=== PATIENT | male | born 1990 | race Caucasian/White ===

== ENCOUNTER 2017-03-29 15:11 | Emergency (ER) | payer SELFPAY ==
[2017-03-29 16:33] VITALS: BP 120/57
== END 2017-03-29 18:00 ==
LOC: ED 15:11
DX: R10.9 Unspecified abdominal pain (principal); Z53.21 Procedure and treatment not carried out due to patient leaving prior to being seen by health care provider

== ENCOUNTER 2017-05-04 14:37 | Emergency (ER) | payer MEDICARE ==
[2017-05-04] MEDS ORDERED: NACL 0.9% 1000 ML 1,000 ML IV ONE ×3 (17:25→21:35)
[2017-05-04 17:53] LABS: Basophils # (Auto) 0.1 K/mm3 (0.0-0.1); Basophils % (Auto) 0.5 % (0.0-1.8); Eosinophils # (Auto) 0.1 K/mm3 (0.0-0.4); Eosinophils % (Auto) 0.7 % (0.0-4.3); Hematocrit 39.8 % (35.5-45.6); Hemoglobin 13.4 gm/dl (11.8-15.2); Lymphocytes # (Auto) 2.9 K/mm3 (1.2-5.4); Lymphocytes % (Auto) 29.7 % (13.4-35.0); Mean Corpuscular HGB Conc 34 % (32-34); Mean Corpuscular Hemoglobin 26 pg (28-32); Mean Corpuscular Volume 78 fl (84-94); Monocytes # (Auto) 0.8 K/mm3 (0.0-0.8); Monocytes % (Auto) 7.7 % (0.0-7.3); Platelet Count 267 K/mm3 (140-440); Red Cell Distribution Width 13.8 % (13.2-15.2)
--- NOTE | 2017-05-04 18:03 | Emergency Department Report ---
ED Psych HPI - General Chief Complaint: Psych Stated Complaint: ANXIETY Time Seen by Provider: 05/04/17 17:21 Source: EMS Mode of arrival: Stretcher Limitations: No Limitations - History of Present Illness Initial Comments: 26-year-old male with a past medical history HIV and bipolar disorder presents to the hospital via EMS and found by Mary by police department. She does state the patient has not been taking medication and he took some bed drugs. Patient denies this. States he takes trazodone. Denies substance use. Patient states that in his home his double end sewer has backed up 3 days ago and he is seeing furry things and seeing waste droppings in his home. Patient is speaking fast, anxious, and fidgeting in the bed. He states that is his baseline. He states he is sleeping. He denies suicidal or homicidal ideation. States he is taking HIV medication and has an undetectable viral load. Patient did smoke marijuana earlier today. Patient was in the police car when EMS arrived it is unclear how the police got involved - Related Data Home Medications Medication Instructions Recorded Confirmed Last Taken No Known Home Medications [No 05/04/17 05/04/17 Unknown Reported Home Medications] Allergies Allergy/AdvReac Type Severity Reaction Status Date / Time No Known Allergies Allergy Unverified 03/29/17 16:33 ED Review of Systems ROS: Stated complaint: ANXIETY Other details as noted in HPI Comment: All other systems reviewed and negative Other: Constitutional: No fevers chills Eyes: No eye pain visual changes ENT: No ear pain or throat pain Neck: Denies pain Respiratory: Denies cough wheezing shortness of breath Cardiovascular: Denies chest pain, palpitations, syncope GI: Denies abdominal pain, nausea, vomiting, diarrhea : Denies dysuria Musculoskeletal: Denies back pain, joint swelling Skin: Denies rash, lesions, erythema Neurologic: Denies headache, numbness, weakness Psychiatric: Denies suicidal ideation, hallucinations ED Past Medical Hx - Past Medical History Hx HIV: Yes - Social History Smoking Status: Current Every Day Smoker Substance Use Type: Alcohol - Medications Home Medications: Home Medications Medication Instructions Recorded Confirmed Last Taken Type No Known Home Medications [No 05/04/17 05/04/17 Unknown History Reported Home Medications] ED Physical Exam - General Limitations: No Limitations - Other Other exam information: General: No limitations, patient is alert in no acute distress Head exam: Atraumatic, normocephalic Eyes exam: Normal appearance, pupils equal reactive to light ENT: Moist mucous membrane, normal oropharynx Neck exam: Normal inspection, full range of motion, no meningismus nontender Respiratory exam: Clear to auscultation bilateral, no wheezes, rales, crackles Cardiovascular: Normal rate and rhythm, normal heart sounds Abdomen: Soft, nondistended, and nontender, with normal bowel sounds, no rebound, or guarding Extremity: Full range of motion normal inspection no deformity Back: Normal Inspection, full range of motion, no tenderness Neurologic: Alert, oriented x3, cranial nerves intact, no motor or sensory deficit Psychiatric: Pressured speech, fidgeting, anxious Skin: Warm, dry, intact ED Course Vital Signs 05/04/17 05/04/17 05/04/17 15:55 18:10 21:04 Temperature 98.5 F 98.0 F Pulse Rate 133 H 96 H 69 Respiratory 20 20 Rate Blood Pressure 145/80 Blood Pressure 114/64 [Left] O2 Sat by Pulse 99 99 98 Oximetry - Reevaluation(s) Reevaluation #1: 05/04/17 18:29 Patient's initial heart rate 133 but repeat is in the 90s which is confirmed by EKG which shows sinus rhythm at 93. CK is elevated. Urine culture pending. IV fluids ordered 05/05/17 01:17 When confronted about UDS results patient admits to abusing methamphetamine and admits to being noncompliant with his medications. He still denies suicidal or homicidal ideation. ED Medical Decision Making - Lab Data Result diagrams: 05/04/17 17:33 05/04/17 17:33 Lab Results 05/04/17 05/04/17 05/04/17 Range/Units 17:33 17:33 17:33 WBC (4.5-11.0) K/mm3 RBC (3.65-5.03) M/mm3 Hgb (11.8-15.2) gm/dl Hct (35.5-45.6) % MCV (84-94) fl MCH (28-32) pg MCHC (32-34) % RDW (13.2-15.2) % Plt Count (140-440) K/mm3 Lymph % (Auto) (13.4-35.0) % [place] % (Auto) (0.0-7.3) % Eos % (Auto) (0.0-4.3) % Baso % (Auto) (0.0-1.8) % Lymph # (1.2-5.4) K/mm3 Hamb[place] # (0.0-0.8) K/mm3 Eos # (0.0-0.4) K/mm3 Baso # (0.0-0.1) K/mm3 Seg Neutrophils % (40.0-70.0) % Seg Neutrophils # (1.8-7.7) K/mm3 PT (12.2-14.9) Sec. INR (0.87-1.13) Sodium 140 (137-145) mmol/L Potassium 3.3 L (3.6-5.0) mmol/L Chloride 99.1 (98-107) mmol/L Carbon Dioxide 26 (22-30) mmol/L Anion Gap 18 mmol/L BUN 16 (9-20) mg/dL Creatinine 1.1 (0.8-1.5) mg/dL Estimated GFR > 60 ml/min BUN/Creatinine Ratio 15 % Glucose 87 (75-100) mg/dL Calcium 9.0 (8.4-10.2) mg/dL Magnesium (1.7-2.3) mg/dL Total Creatine Kinase (55-170) units/L TSH (0.270-4.200) mlU/mL Free T4 (0.76-1.46) ng/dL Urine Color (Yellow) Urine Turbidity (Clear) Urine pH (5.0-7.0) Ur Specific [place] (1.003-1.030) Urine Protein (Negative) mg/dL Urine Glucose (UA) (Negative) mg/dL Urine Ketones (Negative) mg/dL Urine Blood (Negative) Urine Nitrite (Negative) Urine Bilirubin (Negative) Urine Urobilinogen (<2.0) mg/dL Ur Leukocyte Esterase (Negative) Urine WBC (Auto) (0.0-6.0) /HPF Urine RBC (Auto) (0.0-6.0) /HPF U Epithel Cells (Auto) (0-13.0) /HPF Salicylates < 0.3 L (2.8-20.0) mg/dL Urine Opiates Screen Urine Methadone Screen Acetaminophen < 15.0 (10.0-30.0) ug/mL Ur Barbiturates Screen Ur Phencyclidine Scrn Ur Amphetamines Screen U Benzodiazepines Scrn Urine Cocaine Screen U Marijuana (THC) Screen Drugs of Abuse Note Plasma/Serum Alcohol (0-0.07) % 05/04/17 05/04/17 05/04/17 Range/Units 17:33 17:33 17:33 WBC 9.8 (4.5-11.0) K/mm3 RBC 5.10 H (3.65-5.03) M/mm3 Hgb 13.4 (11.8-15.2) gm/dl Hct 39.8 (35.5-45.6) % MCV 78 L (84-94) fl MCH 26 L (28-32) pg MCHC 34 (32-34) % RDW 13.8 (13.2-15.2) % Plt Count 267 (140-440) K/mm3 Lymph % (Auto) 29.7 (13.4-35.0) % [place] % (Auto) 7.7 H (0.0-7.3) % Eos % (Auto) 0.7 (0.0-4.3) % Baso % (Auto) 0.5 (0.0-1.8) % Lymph # 2.9 (1.2-5.4) K/mm3 Hamb[place] # 0.8 (0.0-0.8) K/mm3 Eos # 0.1 (0.0-0.4) K/mm3 Baso # 0.1 (0.0-0.1) K/mm3 Seg Neutrophils % 61.4 (40.0-70.0) % Seg Neutrophils # 6.0 (1.8-7.7) K/mm3 PT (12.2-14.9) Sec. INR (0.87-1.13) Sodium (137-145) mmol/L Potassium (3.6-5.0) mmol/L Chloride (98-107) mmol/L Carbon Dioxide (22-30) mmol/L Anion Gap mmol/L BUN (9-20) mg/dL Creatinine (0.8-1.5) mg/dL Estimated GFR ml/min BUN/Creatinine Ratio % Glucose (75-100) mg/dL Calcium (8.4-10.2) mg/dL Magnesium 1.70 (1.7-2.3) mg/dL Total Creatine Kinase 1275 H (55-170) units/L TSH (0.270-4.200) mlU/mL Free T4 (0.76-1.46) ng/dL Urine Color (Yellow) Urine Turbidity (Clear) Urine pH (5.0-7.0) Ur Specific [place] (1.003-1.030) Urine Protein (Negative) mg/dL Urine Glucose (UA) (Negative) mg/dL Urine Ketones (Negative) mg/dL Urine Blood (Negative) Urine Nitrite (Negative) Urine Bilirubin (Negative) Urine Urobilinogen (<2.0) mg/dL Ur Leukocyte Esterase (Negative) Urine WBC (Auto) (0.0-6.0) /HPF Urine RBC (Auto) (0.0-6.0) /HPF U Epithel Cells (Auto) (0-13.0) /HPF Salicylates (2.8-20.0) mg/dL Urine Opiates Screen Urine Methadone Screen Acetaminophen (10.0-30.0) ug/mL Ur Barbiturates Screen Ur Phencyclidine Scrn Ur Amphetamines Screen U Benzodiazepines Scrn Urine Cocaine Screen U Marijuana (THC) Screen Drugs of Abuse Note Plasma/Serum Alcohol < 0.01 (0-0.07) % 05/04/17 05/04/17 05/04/17 Range/Units 17:33 17:33 19:40 WBC (4.5-11.0) K/mm3 RBC (3.65-5.03) M/mm3 Hgb (11.8-15.2) gm/dl Hct (35.5-45.6) % MCV (84-94) fl MCH (28-32) pg MCHC (32-34) % RDW (13.2-15.2) % Plt Count (140-440) K/mm3 Lymph % (Auto) (13.4-35.0) % [place] % (Auto) (0.0-7.3) % Eos % (Auto) (0.0-4.3) % Baso % (Auto) (0.0-1.8) % Lymph # (1.2-5.4) K/mm3 [place] # (0.0-0.8) K/mm3 Eos # (0.0-0.4) K/mm3 Baso # (0.0-0.1) K/mm3 Seg Neutrophils % (40.0-70.0) % Seg Neutrophils # (1.8-7.7) K/mm3 PT 13.9 (12.2-14.9) Sec. INR 1.02 (0.87-1.13) Sodium (137-145) mmol/L Potassium (3.6-5.0) mmol/L Chloride (98-107) mmol/L Carbon Dioxide (22-30) mmol/L Anion Gap mmol/L BUN (9-20) mg/dL Creatinine (0.8-1.5) mg/dL Estimated GFR ml/min BUN/Creatinine Ratio % Glucose (75-100) mg/dL Calcium (8.4-10.2) mg/dL Magnesium (1.7-2.3) mg/dL Total Creatine Kinase (55-170) units/L TSH 0.560 (0.270-4.200) mlU/mL Free T4 1.56 H (0.76-1.46) ng/dL Urine Color Yellow (Yellow) Urine Turbidity Clear (Clear) Urine pH 6.0 (5.0-7.0) Ur Specific [place] 1.005 (1.003-1.030) Urine Protein <15 mg/dl (Negative) mg/dL Urine Glucose (UA) Neg (Negative) mg/dL Urine Ketones Neg (Negative) mg/dL Urine Blood Neg (Negative) Urine Nitrite Neg (Negative) Urine Bilirubin Neg (Negative) Urine Urobilinogen < 2.0 (<2.0) mg/dL Ur Leukocyte Esterase Neg (Negative) Urine WBC (Auto) < 1.0 (0.0-6.0) /HPF Urine RBC (Auto) 1.0 (0.0-6.0) /HPF U Epithel Cells (Auto) < 1.0 (0-13.0) /HPF Salicylates (2.8-20.0) mg/dL Urine Opiates Screen Urine Methadone Screen Acetaminophen (10.0-30.0) ug/mL Ur Barbiturates Screen Ur Phencyclidine Scrn Ur Amphetamines Screen U Benzodiazepines Scrn Urine Cocaine Screen U Marijuana (THC) Screen Drugs of Abuse Note Plasma/Serum Alcohol (0-0.07) % 05/04/17 05/04/17 Range/Units 19:40 23:52 WBC (4.5-11.0) K/mm3 RBC (3.65-5.03) M/mm3 Hgb (11.8-15.2) gm/dl Hct (35.5-45.6) % MCV (84-94) fl MCH (28-32) pg MCHC (32-34) % RDW (13.2-15.2) % Plt Count (140-440) K/mm3 Lymph % (Auto) (13.4-35.0) % [place] % (Auto) (0.0-7.3) % Eos % (Auto) (0.0-4.3) % Baso % (Auto) (0.0-1.8) % Lymph # (1.2-5.4) K/mm3 [place] # (0.0-0.8) K/mm3 Eos # (0.0-0.4) K/mm3 Baso # (0.0-0.1) K/mm3 Seg Neutrophils % (40.0-70.0) % Seg Neutrophils # (1.8-7.7) K/mm3 PT (12.2-14.9) Sec. INR (0.87-1.13) Sodium (137-145) mmol/L Potassium (3.6-5.0) mmol/L Chloride (98-107) mmol/L Carbon Dioxide (22-30) mmol/L Anion Gap mmol/L BUN (9-20) mg/dL Creatinine (0.8-1.5) mg/dL Estimated GFR ml/min BUN/Creatinine Ratio % Glucose (75-100) mg/dL Calcium (8.4-10.2) mg/dL Magnesium (1.7-2.3) mg/dL Total Creatine Kinase 1128 H (55-170) units/L TSH (0.270-4.200) mlU/mL Free T4 (0.76-1.46) ng/dL Urine Color (Yellow) Urine Turbidity (Clear) Urine pH (5.0-7.0) Ur Specific [place] (1.003-1.030) Urine Protein (Negative) mg/dL Urine Glucose (UA) (Negative) mg/dL Urine Ketones (Negative) mg/dL Urine Blood (Negative) Urine Nitrite (Negative) Urine Bilirubin (Negative) Urine Urobilinogen (<2.0) mg/dL Ur Leukocyte Esterase (Negative) Urine WBC (Auto) (0.0-6.0) /HPF Urine RBC (Auto) (0.0-6.0) /HPF U Epithel Cells (Auto) (0-13.0) /HPF Salicylates (2.8-20.0) mg/dL Urine Opiates Screen Presumptive negative Urine Methadone Screen Presumptive negative Acetaminophen (10.0-30.0) ug/mL Ur Barbiturates Screen Presumptive negative Ur Phencyclidine Scrn Presumptive negative Ur Amphetamines Screen Presumptive positive U Benzodiazepines Scrn Presumptive negative Urine Cocaine Screen Presumptive negative U Marijuana (THC) Screen Presumptive negative Drugs of Abuse Note Disclamer Plasma/Serum Alcohol (0-0.07) % - EKG Data -: EKG Interpreted by Nd EKG shows normal: sinus rhythm, axis (32), QRS complexes (95), ST-T waves (no stemi/t inv) Rate: normal (93) - EKG Data When compared to previous EKG there are: previous EKG unavailable - Medical Decision Making Methamphetamine abuse Likely cause of patient's initial presentation of tachycardia, pressure speech, agitation Positive associated elevated CKs trending downward with hydration. No signs of renal insufficiency Additional fluids will be provided while waiting for psychiatric evaluation Bipolar Noncompliant with medications Denies suicidal or homicidal Does not meet 1013 criteria at this time Mild hypokalemia By mouth potassium provided HIV Reports undetectable viral load Normal WBC count Patient will be advised to wait in the ED until evaluation by psychiatrist/ nurse practitioner in the morning for further assessment and advice regarding patient's medications - Differential Diagnosis anxiety, substance abuse, medication noncompliance, bipolar, manic episode Critical Care Time: No Critical care attestation.: If time is entered above; I have spent that time in minutes in the direct care of this critically ill patient, excluding procedure time. ED Disposition Clinical Impression: Bipolar disorder, HIV (human immunodeficiency virus infection), Amphetamine abuse, Elevated CK Disposition: DC-01 TO HOME OR SELFCARE Is pt being admited?: No Condition: Stable Instructions: Bipolar Disorder (ED), Methamphetamine Abuse (ED) Additional Instructions: Stop using methamphetamine. Follow up with the [facility]. Take Medications as prescribed. Return is symptoms worsen. Referrals: [facility] [Outside] - 3-5 Days
[2017-05-04 18:10] LABS: BUN/Creatinine Ratio 15; Blood Urea Nitrogen 16 mg/dL (9-20); Hemolysis Index 9
[2017-05-04 18:13] LABS: Magnesium 1.7 mg/dL (1.7-2.3)
[2017-05-04 18:26] LABS: INR 1.02 (0.87-1.13)
[2017-05-04] MEDS ORDERED: K-DUR PO ONE (18:28)
[2017-05-04 18:29] LABS: Free T4 (Free Thyroxine) 1.56 ng/dL (0.76-1.46)
[2017-05-04 19:55] LABS: Bilirubin,Urine NEG (Negative); Blood,Urine NEG (Negative); Color,Urine Yellow (Yellow); Nitrite,Urine NEG (Negative); Protein,Urine <15 mg/dL mg/dL (Negative); Urobilinogen,Urine < 2.0 mg/dL (<2.0); WBC,Urine < 1.0 /HPF (0.0-6.0)
[2017-05-04 19:59] LABS: Benzodiazepines Screen,Urine PRESUMPTIVE NEGATIVE; Cannabinoid Screen,Urine PRESUMPTIVE NEGATIVE; Cocaine Screen,Urine PRESUMPTIVE NEGATIVE; Methadone Screen,Urine PRESUMPTIVE NEGATIVE; Opiate Screen,Urine PRESUMPTIVE NEGATIVE
[2017-05-04 20:11] LABS: Amphetamine Screen,Urine PRESUMPTIVE POSITIVE
[2017-05-05] MEDS ORDERED: NACL 0.9% 1000 ML 1,000 ML IV ONE ×2 (00:53→01:03)
[2017-05-05 09:14] VITALS: BP 108/82
--- NOTE | 2017-05-05 13:24 | Consultation ---
History of Present Illness - Reason for Consult Consult date: 05/05/17 Reason for consult: anxiety Requesting physician: BHUPINDER MERCER - Chief Complaint Chief complaint: "I want to leave" - History of Present Psychiatric Illness 26 y/o AAM with a past medical history of bipolar disorder presents to the hospital via EMS and found by Mary by police department. Pt admits to taking "bad drugs" when someone called 911 on him. He is being followed by Dr. Ely URBANO and will make an appt to f/u with him next week. Pt is talkative, anxious and distracted today in assessment. Denies SI/HI, and AVH. He had visual hallucinations after he used meth two days ago, but now "all that is cleared." States that he is sleeping well at night when he takes his Trazadone. He refuses to start any medications today. 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 Medications and Allergies Allergies Allergy/AdvReac Type Severity Reaction Status Date / Time No Known Allergies Allergy Unverified 03/29/17 16:33 Home Medications Medication Instructions Recorded Confirmed Last Taken Type No Known Home Medications [No 05/04/17 05/04/17 Unknown History Reported Home Medications] Past psychiatric history - past Psychiatric treatment and history Psych: Bipolar - Social History Social history: single Mental Status Exam - Vital signs Last Vital Signs Temp 98.6 F 05/05/17 09:11 Pulse 68 05/05/17 09:11 Resp 17 05/05/17 09:11 BP 108/82 05/05/17 09:11 Pulse Ox 99 05/05/17 09:11 - Exam Orientation: time, place, person Affect: anxious, agitated Mood: anxious Thought Process: Circumstantial Perceptions: none Speech: rapid Concentration: distractible Motor activity: normal Level of consciousness: alert Memory: Intact Interaction: irritable Results Result Diagrams: 05/04/17 17:33 05/04/17 17:33 Abnormal lab results 05/04/17 05/04/17 05/04/17 Range/Units 17:33 17:33 17:33 RBC 5.10 H (3.65-5.03) M/mm3 MCV 78 L (84-94) fl MCH 26 L (28-32) pg Mccone % (Auto) 7.7 H (0.0-7.3) % Potassium 3.3 L (3.6-5.0) mmol/L Total Creatine Kinase (55-170) units/L Free T4 (0.76-1.46) ng/dL Salicylates < 0.3 L (2.8-20.0) mg/dL 05/04/17 05/04/17 05/04/17 Range/Units 17:33 17:33 23:52 RBC (3.65-5.03) M/mm3 MCV (84-94) fl MCH (28-32) pg M[place]one % (Auto) (0.0-7.3) % Potassium (3.6-5.0) mmol/L Total Creatine Kinase 1275 H 1128 H (55-170) units/L Free T4 1.56 H (0.76-1.46) ng/dL Salicylates (2.8-20.0) mg/dL All other labs normal. Assessment and Plan Assessment and plan: Impression- History of Bipolar DO Recommendation- Patient will benefit from inpatient treatment, but has left AMA
== END 2017-05-05 15:10 | disposition home or self-care (01) ==
LOC: ED 14:37
DX: F31.9 Bipolar disorder, unspecified (principal); F17.200 Nicotine dependence, unspecified, uncomplicated
CPT/HCPCS: 36415; 80048; 80307; 81001; 82550; 83735; 84439; 84443; 85025; 85610; 93005; 93010; 96360; 96361; 99284; G0480; J7030; 80320

== ENCOUNTER 2017-06-12 23:46 | Emergency (ER) | payer MEDICARE ==
[2017-06-13 00:12] VITALS: BP 142/88
[2017-06-13 00:18] LABS: Hematocrit 40.3 % (35.5-45.6); Hemoglobin 13.2 gm/dl (11.8-15.2); Mean Corpuscular HGB Conc 33 % (32-34); Mean Corpuscular Volume 79 fl (84-94); Platelet Count 326 K/mm3 (140-440); Red Blood Count 5.13 M/mm3 (3.65-5.03); Red Cell Distribution Width 14.4 % (13.2-15.2)
[2017-06-13 00:34] LABS: BUN/Creatinine Ratio 13; Blood Urea Nitrogen 13 mg/dL (9-20); Calcium 8.9 mg/dL (8.4-10.2); Hemolysis Index 2
[2017-06-13 00:47] LABS: Mean Corpuscular Hemoglobin 26 pg (28-32)
[2017-06-13 02:02] LABS: Eosinophils % (Manual) 0 % (0.0-4.3); Smudge Cells Few; Total Cells Counted 100
[2017-06-13 02:05] LABS: Platelet Estimate Consistent w Auto; RBC Morphology Normal; Rouleaux Few
[2017-06-13 02:26] LABS: Bilirubin,Urine NEG (Negative); Blood,Urine NEG (Negative); Color,Urine Yellow (Yellow); Mucus,Urine 3+ /HPF
[2017-06-13 02:30] LABS: Benzodiazepines Screen,Urine PRESUMPTIVE NEGATIVE; Cannabinoid Screen,Urine PRESUMPTIVE NEGATIVE; Methadone Screen,Urine PRESUMPTIVE NEGATIVE; Opiate Screen,Urine PRESUMPTIVE NEGATIVE
[2017-06-13 02:53] LABS: Amphetamine Screen,Urine PRESUMPTIVE POSITIVE; Cocaine Screen,Urine PRESUMPTIVE POSITIVE
[2017-06-13] MEDS ORDERED: K-DUR PO ONE (03:51)
--- NOTE | 2017-06-13 03:53 | Emergency Department Report ---
ED Psych HPI - General Chief Complaint: Psych Stated Complaint: MH EVAL Time Seen by Provider: 06/13/17 00:37 Source: patient, EMS Mode of arrival: Ambulatory Limitations: No Limitations - History of Present Illness Initial Comments: 26-year-old male with a past medical history bipolar disorder, HIV, seizures, and polysubstance abuse presents to the hospital complaining of an anxiety attack while at home today. Patient feels like the carpet in the [place] were moving. Patient states that those symptoms have since resolved. He denies suicidal ideation, homicidal ideation, hallucinations. Patient admits to abusing methamphetamines and cocaine with last use 2-3 days ago. He states he is compliant with his HIV and psychiatric medication. Does not know his CD4 or viral load at this time but has a follow-up visit scheduled with infectious disease and he can see his psychiatrist on Wednesday - Related Data Home Medications Medication Instructions Recorded Confirmed Last Taken No Known Home Medications [No 05/04/17 06/13/17 Unknown Reported Home Medications] Allergies Allergy/AdvReac Type Severity Reaction Status Date / Time No Known Allergies Allergy Unverified 03/29/17 16:33 ED Review of Systems ROS: Stated complaint: MH EVAL Other details as noted in HPI Comment: All other systems reviewed and negative ED Past Medical Hx - Past Medical History Previous Medical History?: Yes Hx Seizures: Yes Hx Psychiatric Treatment: Yes (bipolar) Hx HIV: Yes - Social History Smoking Status: Current Every Day Smoker Substance Use Type: Alcohol - Medications Home Medications: Home Medications Medication Instructions Recorded Confirmed Last Taken Type No Known Home Medications [No 05/04/17 06/13/17 Unknown History Reported Home Medications] ED Physical Exam - General Limitations: Other - Other Other exam information: General: No limitations, patient is alert in no acute distress Head exam: Atraumatic, normocephalic Eyes exam: Normal appearance, pupils equal reactive to light ENT: Moist mucous membrane, normal oropharynx. no thrush Neck exam: Normal inspection, full range of motion, no meningismus nontender Respiratory exam: Clear to auscultation bilateral, no wheezes, rales, crackles Cardiovascular: Normal rate and rhythm, normal heart sounds Abdomen: Soft, nondistended, and nontender, with normal bowel sounds, no rebound, or guarding Extremity: Full range of motion normal inspection no deformity Back: Normal Inspection, full range of motion, no tenderness Neurologic: Alert, oriented x3, cranial nerves intact, no motor or sensory deficit, stuttering speech Psychiatric: normal affect, normal mood Skin: Warm, dry, intact ED Course Vital Signs 06/12/17 23:53 Temperature 98.1 F Pulse Rate 90 Respiratory 18 Rate Blood Pressure 142/88 [Left] O2 Sat by Pulse 98 Oximetry ED Medical Decision Making - Lab Data Result diagrams: 06/13/17 00:05 06/13/17 00:05 Lab Results 06/13/17 06/13/17 06/13/17 Range/Units 00:05 00:05 00:05 WBC (4.5-11.0) K/mm3 RBC (3.65-5.03) M/mm3 Hgb (11.8-15.2) gm/dl Hct (35.5-45.6) % MCV (84-94) fl MCH (28-32) pg MCHC (32-34) % RDW (13.2-15.2) % Plt Count (140-440) K/mm3 Add Manual Diff Total Counted Seg Neuts % (Manual) (40.0-70.0) % Band Neutrophils % % Lymphocytes % (Manual) (13.4-35.0) % Reactive Lymphs % (Man) % Monocytes % (Manual) (0.0-7.3) % Eosinophils % (Manual) (0.0-4.3) % Basophils % (Manual) (0.0-1.8) % Metamyelocytes % % Myelocytes % % Promyelocytes % % Blast Cells % % Nucleated RBC % Seg Neutrophils # Man (1.8-7.7) K/mm3 Band Neutrophils # K/mm3 Lymphocytes # (Manual) (1.2-5.4) K/mm3 Abs React Lymphs (Man) K/mm3 Monocytes # (Manual) (0.0-0.8) K/mm3 Eosinophils # (Manual) (0.0-0.4) K/mm3 Basophils # (Manual) (0.0-0.1) K/mm3 Metamyelocytes # K/mm3 Myelocytes # K/mm3 Promyelocytes # K/mm3 Blast Cells # K/mm3 WBC Morphology Hypersegmented Neuts Hyposegmented Neuts Hypogranular Neuts Smudge Cells Toxic Granulation Toxic Vacuolation Dohle Bodies Pelger-Huet Anomaly Leeanna Rods Platelet Estimate Clumped Platelets Plt Clumps, EDTA Large Platelets Giant Platelets Platelet Satelliting Plt Morphology Comment RBC Morphology Dimorphic RBCs Polychromasia Hypochromasia Poikilocytosis Anisocytosis Microcytosis Macrocytosis Spherocytes Pappenheimer Bodies Sickle Cells Target Cells Tear Drop Cells Ovalocytes Helmet Cells [place] Bodies [place] Rings [place] Cells Bite Cells Crenated Cell Elliptocytes Acanthocytes (Spur) Rouleaux Hemoglobin C Crystals Schistocytes Malaria parasites Aubrey Bodies Hem Pathologist Commnt Sodium 136 L (137-145) mmol/L Potassium 3.5 L (3.6-5.0) mmol/L Chloride 97.3 L (98-107) mmol/L Carbon Dioxide 24 (22-30) mmol/L Anion Gap 18 mmol/L BUN 13 (9-20) mg/dL Creatinine 1.0 (0.8-1.5) mg/dL Estimated GFR > 60 ml/min BUN/Creatinine Ratio 13 % Glucose 95 (75-100) mg/dL Calcium 8.9 (8.4-10.2) mg/dL Urine Color (Yellow) Urine Turbidity (Clear) Urine pH (5.0-7.0) Ur Specific [place] (1.003-1.030) Urine Protein (Negative) mg/dL Urine Glucose (UA) (Negative) mg/dL Urine Ketones (Negative) mg/dL Urine Blood (Negative) Urine Nitrite (Negative) Urine Bilirubin (Negative) Urine Urobilinogen (<2.0) mg/dL Ur Leukocyte Esterase (Negative) Urine WBC (Auto) (0.0-6.0) /HPF Urine RBC (Auto) (0.0-6.0) /HPF U Epithel Cells (Auto) (0-13.0) /HPF Urine Mucus /HPF Salicylates < 0.3 L (2.8-20.0) mg/dL Urine Opiates Screen Urine Methadone Screen Acetaminophen < 15.0 (10.0-30.0) ug/mL Ur Barbiturates Screen Ur Phencyclidine Scrn Ur Amphetamines Screen U Benzodiazepines Scrn Urine Cocaine Screen U Marijuana (THC) Screen Drugs of Abuse Note Plasma/Serum Alcohol (0-0.07) % 06/13/17 06/13/17 06/13/17 Range/Units 00:05 00:05 02:00 WBC 7.0 (4.5-11.0) K/mm3 RBC 5.13 H (3.65-5.03) M/mm3 Hgb 13.2 (11.8-15.2) gm/dl Hct 40.3 (35.5-45.6) % MCV 79 L (84-94) fl MCH 26 L (28-32) pg MCHC 33 (32-34) % RDW 14.4 (13.2-15.2) % Plt Count 326 (140-440) K/mm3 Add Manual Diff Complete Total Counted 100 Seg Neuts % (Manual) 65.0 (40.0-70.0) % Band Neutrophils % 0 % Lymphocytes % (Manual) 28.0 (13.4-35.0) % Reactive Lymphs % (Man) 0 % Monocytes % (Manual) 6.0 (0.0-7.3) % Eosinophils % (Manual) 0 (0.0-4.3) % Basophils % (Manual) 1.0 (0.0-1.8) % Metamyelocytes % 0 % Myelocytes % 0 % Promyelocytes % 0 % Blast Cells % 0 % Nucleated RBC % Not Reportable Seg Neutrophils # Man 4.6 (1.8-7.7) K/mm3 Band Neutrophils # 0.0 K/mm3 Lymphocytes # (Manual) 2.0 (1.2-5.4) K/mm3 Abs React Lymphs (Man) 0.0 K/mm3 Monocytes # (Manual) 0.4 (0.0-0.8) K/mm3 Eosinophils # (Manual) 0.0 (0.0-0.4) K/mm3 Basophils # (Manual) 0.1 (0.0-0.1) K/mm3 Metamyelocytes # 0.0 K/mm3 Myelocytes # 0.0 K/mm3 Promyelocytes # 0.0 K/mm3 Blast Cells # 0.0 K/mm3 WBC Morphology Not Reportable Hypersegmented Neuts Not Reportable Hyposegmented Neuts Not Reportable Hypogranular Neuts Not Reportable Smudge Cells Few Toxic Granulation Not Reportable Toxic Vacuolation Not Reportable Dohle Bodies Not Reportable Pelger-Huet Anomaly Not Reportable Leeanna Rods Not Reportable Platelet Estimate Consistent w auto Clumped Platelets Not Reportable Plt Clumps, EDTA Not Reportable Large Platelets Not Reportable Giant Platelets Not Reportable Platelet Satelliting Not Reportable Plt Morphology Comment Not Reportable RBC Morphology Normal Dimorphic RBCs Not Reportable Polychromasia Not Reportable Hypochromasia Not Reportable Poikilocytosis Not Reportable Anisocytosis Not Reportable Microcytosis Not Reportable Macrocytosis Not Reportable Spherocytes Not Reportable Pappenheimer Bodies Not Reportable Sickle Cells Not Reportable Target Cells Not Reportable Tear Drop Cells Not Reportable Ovalocytes Not Reportable Helmet Cells Not Reportable [place] Bodies Not Reportable [place] Rings Not Reportable Jm Cells Not Reportable Bite Cells Not Reportable Crenated Cell Not Reportable Elliptocytes Not Reportable Acanthocytes (Spur) Not Reportable Rouleaux Few Hemoglobin C Crystals Not Reportable Schistocytes Not Reportable Malaria parasites Not Reportable Aubrey Bodies Not Reportable Hem Pathologist Commnt No Sodium (137-145) mmol/L Potassium (3.6-5.0) mmol/L Chloride (98-107) mmol/L Carbon Dioxide (22-30) mmol/L Anion Gap mmol/L BUN (9-20) mg/dL Creatinine (0.8-1.5) mg/dL Estimated GFR ml/min BUN/Creatinine Ratio % Glucose (75-100) mg/dL Calcium (8.4-10.2) mg/dL Urine Color Yellow (Yellow) Urine Turbidity Clear (Clear) Urine pH 5.0 (5.0-7.0) Ur Specific [place] 1.031 H (1.003-1.030) Urine Protein 30 mg/dl (Negative) mg/dL Urine Glucose (UA) Neg (Negative) mg/dL Urine Ketones Tr (Negative) mg/dL Urine Blood Neg (Negative) Urine Nitrite Neg (Negative) Urine Bilirubin Neg (Negative) Urine Urobilinogen 2.0 (<2.0) mg/dL Ur Leukocyte Esterase Neg (Negative) Urine WBC (Auto) 1.0 (0.0-6.0) /HPF Urine RBC (Auto) 5.0 (0.0-6.0) /HPF U Epithel Cells (Auto) < 1.0 (0-13.0) /HPF Urine Mucus 3+ /HPF Salicylates (2.8-20.0) mg/dL Urine Opiates Screen Urine Methadone Screen Acetaminophen (10.0-30.0) ug/mL Ur Barbiturates Screen Ur Phencyclidine Scrn Ur Amphetamines Screen U Benzodiazepines Scrn Urine Cocaine Screen U Marijuana (THC) Screen Drugs of Abuse Note Plasma/Serum Alcohol < 0.01 (0-0.07) % 06/13/17 Range/Units 02:00 WBC (4.5-11.0) K/mm3 RBC (3.65-5.03) M/mm3 Hgb (11.8-15.2) gm/dl Hct (35.5-45.6) % MCV (84-94) fl MCH (28-32) pg MCHC (32-34) % RDW (13.2-15.2) % Plt Count (140-440) K/mm3 Add Manual Diff Total Counted Seg Neuts % (Manual) (40.0-70.0) % Band Neutrophils % % Lymphocytes % (Manual) (13.4-35.0) % Reactive Lymphs % (Man) % Monocytes % (Manual) (0.0-7.3) % Eosinophils % (Manual) (0.0-4.3) % Basophils % (Manual) (0.0-1.8) % Metamyelocytes % % Myelocytes % % Promyelocytes % % Blast Cells % % Nucleated RBC % Seg Neutrophils # Man (1.8-7.7) K/mm3 Band Neutrophils # K/mm3 Lymphocytes # (Manual) (1.2-5.4) K/mm3 Abs React Lymphs (Man) K/mm3 Monocytes # (Manual) (0.0-0.8) K/mm3 Eosinophils # (Manual) (0.0-0.4) K/mm3 Basophils # (Manual) (0.0-0.1) K/mm3 Metamyelocytes # K/mm3 Myelocytes # K/mm3 Promyelocytes # K/mm3 Blast Cells # K/mm3 WBC Morphology Hypersegmented Neuts Hyposegmented Neuts Hypogranular Neuts Smudge Cells Toxic Granulation Toxic Vacuolation Dohle Bodies Pelger-Huet Anomaly Leeanna Rods Platelet Estimate Clumped Platelets Plt Clumps, EDTA Large Platelets Giant Platelets Platelet Satelliting Plt Morphology Comment RBC Morphology Dimorphic RBCs Polychromasia Hypochromasia Poikilocytosis Anisocytosis Microcytosis Macrocytosis Spherocytes Pappenheimer Bodies Sickle Cells Target Cells Tear Drop Cells Ovalocytes Helmet Cells [place] Bodies [place] Rings [place] Cells Bite Cells Crenated Cell Elliptocytes Acanthocytes (Spur) Rouleaux Hemoglobin C Crystals Schistocytes Malaria parasites Aubrey Bodies Hem Pathologist Commnt Sodium (137-145) mmol/L Potassium (3.6-5.0) mmol/L Chloride (98-107) mmol/L Carbon Dioxide (22-30) mmol/L Anion Gap mmol/L BUN (9-20) mg/dL Creatinine (0.8-1.5) mg/dL Estimated GFR ml/min BUN/Creatinine Ratio % Glucose (75-100) mg/dL Calcium (8.4-10.2) mg/dL Urine Color (Yellow) Urine Turbidity (Clear) Urine pH (5.0-7.0) Ur Specific [place] (1.003-1.030) Urine Protein (Negative) mg/dL Urine Glucose (UA) (Negative) mg/dL Urine Ketones (Negative) mg/dL Urine Blood (Negative) Urine Nitrite (Negative) Urine Bilirubin (Negative) Urine Urobilinogen (<2.0) mg/dL Ur Leukocyte Esterase (Negative) Urine WBC (Auto) (0.0-6.0) /HPF Urine RBC (Auto) (0.0-6.0) /HPF U Epithel Cells (Auto) (0-13.0) /HPF Urine Mucus /HPF Salicylates (2.8-20.0) mg/dL Urine Opiates Screen Presumptive negative Urine Methadone Screen Presumptive negative Acetaminophen (10.0-30.0) ug/mL Ur Barbiturates Screen Presumptive negative Ur Phencyclidine Scrn Presumptive negative Ur Amphetamines Screen Presumptive positive U Benzodiazepines Scrn Presumptive negative Urine Cocaine Screen Presumptive positive U Marijuana (THC) Screen Presumptive negative Drugs of Abuse Note Disclamer Plasma/Serum Alcohol (0-0.07) % - Medical Decision Making Patient psychosis likely leading to his underlying disorder and substance abuse. He is no longer having hallucinations denies suicidal and homicidal ideation. Patient does not need 1013 criteria at this time and will be discharged home Patient has mild CK elevation and receive normal saline prior to discharge. Also received by mouth potassium for mild hypokalemia - Differential Diagnosis psychosis, substance abuse, bipolar Critical Care Time: No Critical care attestation.: If time is entered above; I have spent that time in minutes in the direct care of this critically ill patient, excluding procedure time. ED Disposition Clinical Impression: Bipolar disorder, Hallucination, Cocaine abuse, Methamphetamine abuse, HIV disease Disposition: - TO HOME OR SELFCARE Is pt being admited?: No Condition: Stable Instructions: Cocaine Abuse (ED), Bipolar Disorder (ED), Methamphetamine Abuse (ED) Additional Instructions: Continue current medication as prescribed. Stop using illegal drugs because they will make your underlying psychiatric disorder worse. Follow-up with your psychiatrist on Wednesday as discussed. Referrals: your psychiatrist, [Other] - 06/14/17 Time of Disposition: 06:30
[2017-06-13] MEDS ORDERED: NACL 0.9% 1000 ML 1,000 ML IV ONE (04:10)
== END 2017-06-13 05:58 | disposition home or self-care (01) ==
LOC: EEVIPCON 23:46 → ED 23:46
DX: F14.10 Cocaine abuse, uncomplicated (principal); F15.10 Other stimulant abuse, uncomplicated; F31.9 Bipolar disorder, unspecified; B20 Human immunodeficiency virus [HIV] disease; F17.200 Nicotine dependence, unspecified, uncomplicated; Z88.0 Allergy status to penicillin; Z79.899 Other long term (current) drug therapy
CPT/HCPCS: 36415; 80048; 80307; 81001; 82550; 85007; 85025; 96360; 99284; G0480; J7030; 80320

== ENCOUNTER 2017-06-30 04:05 | Emergency (ER) | payer MEDICARE ==
[2017-06-30] MEDS ORDERED: TYLENOL PO ONE (04:57)
[2017-06-30] MEDS ORDERED: ATIVAN IM ONE (04:57)
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
--- NOTE | 2017-06-30 05:24 | XRay Report ---
FINAL REPORT EXAM: XR CHEST 1V AP HISTORY: chest pain TECHNIQUE: A portable upright view the chest was submitted. FINDINGS: The heart size and mediastinum appear normal. The lungs are clear. Pleural fluid is not seen. The bones and soft tissues appear well maintained. IMPRESSION: Normal chest.
[2017-06-30 05:29] LABS: Basophils # (Auto) 0.1 K/mm3 (0.0-0.1); Basophils % (Auto) 0.5 % (0.0-1.8); Eosinophils # (Auto) 0.5 K/mm3 (0.0-0.4); Eosinophils % (Auto) 4.2 % (0.0-4.3); Hematocrit 41.3 % (35.5-45.6); Hemoglobin 13.2 gm/dl (11.8-15.2); Lymphocytes # (Auto) 1.9 K/mm3 (1.2-5.4); Lymphocytes % (Auto) 15.7 % (13.4-35.0); Mean Corpuscular HGB Conc 32 % (32-34); Mean Corpuscular Volume 80 fl (84-94); Monocytes # (Auto) 0.8 K/mm3 (0.0-0.8); Monocytes % (Auto) 6.9 % (0.0-7.3); Platelet Count 384 K/mm3 (140-440); Red Blood Count 5.18 M/mm3 (3.65-5.03); Red Cell Distribution Width 15.3 % (13.2-15.2)
[2017-06-30 05:38] LABS: Mean Corpuscular Hemoglobin 25 pg (28-32)
[2017-06-30 05:42] LABS: BUN/Creatinine Ratio 11; Blood Urea Nitrogen 11 mg/dL (9-20); Calcium 9.4 mg/dL (8.4-10.2); Hemolysis Index 2
[2017-06-30 06:05] LABS: Bilirubin,Urine NEG (Negative); Blood,Urine NEG (Negative); Color,Urine Yellow (Yellow); Hyaline Casts,Urine 14 /LPF; Mucus,Urine 3+ /HPF; Urobilinogen,Urine < 2.0 mg/dL (<2.0)
[2017-06-30 06:11] LABS: Benzodiazepines Screen,Urine PRESUMPTIVE NEGATIVE; Cannabinoid Screen,Urine PRESUMPTIVE NEGATIVE; Cocaine Screen,Urine PRESUMPTIVE NEGATIVE; Methadone Screen,Urine PRESUMPTIVE NEGATIVE; Opiate Screen,Urine PRESUMPTIVE NEGATIVE
[2017-06-30] MEDS ORDERED: NACL 0.9% 1000 ML 1,000 ML IV ONE (06:28)
[2017-06-30] MEDS ORDERED: TYLENOL PO PRN (06:29)
[2017-06-30] MEDS ORDERED: MILK OF MAGNESIA PO PRN (06:29)
[2017-06-30] MEDS ORDERED: ALUM-MAG HYDROX-SIMETH 200-200-20MG/5ML PO PRN (06:29)
[2017-06-30 06:42] LABS: Amphetamine Screen,Urine PRESUMPTIVE POSITIVE
[2017-06-30 09:07] VITALS: BP 112/78
[2017-06-30] MEDS ORDERED: PROTONIX PO SCH (10:00)
[2017-06-30] MEDS ORDERED: HABITROL TD SCH (10:00)
== END 2017-06-30 10:07 ==
LOC: ED 04:05
DX: F23 Brief psychotic disorder (principal); E86.0 Dehydration; R07.89 Other chest pain; F31.9 Bipolar disorder, unspecified
CPT/HCPCS: 36415; 71045; 80048; 80307; 81001; 84484; 85025; 93005; 93010; 96372; 99284; G0480; J2060; 80320

== ENCOUNTER 2017-08-07 05:18 | Emergency (ER) | payer MEDICARE ==
--- NOTE | 2017-08-07 05:47 | Emergency Department Report ---
Chief Complaint: Overdose Stated Complaint: AMS/DRUG USE - HPI History of Present Illness: Mr. Reddy is a 26-year-old male with history of paranoid schizophrenia. His roommate called 911. He was brought by EMS. Roommate was concerned for acute psychotic episode due to large use of synthetic marijuana and amphetamine. Patient is directable. He is hyperactive. He appears restless. Placed on 2012 with seclusion and appropriate precautions - Exam Vital Signs: Vital Signs 08/07/17 05:40 Temperature 97.9 F Pulse Rate 131 H Respiratory 22 Rate Blood Pressure 128/67 O2 Sat by Pulse 99 Oximetry MSE screening note: Focused history and physical exam performed. Due to findings the following was ordered: ED Disposition for MSE Condition: Stable
[2017-08-07] MEDS ORDERED: HALDOL IM ONE ×2 (05:50→13:18)
[2017-08-07] MEDS ORDERED: HALDOL ONE (05:52)
[2017-08-07] MEDS ORDERED: ATIVAN ONE (05:52)
[2017-08-07] MEDS ORDERED: ATIVAN IM ONE ×2 (06:00→13:50)
[2017-08-07 10:14] LABS: Basophils # (Auto) 0.1 K/mm3 (0.0-0.1); Eosinophils # (Auto) 0.1 K/mm3 (0.0-0.4); Eosinophils % (Auto) 1.4 % (0.0-4.3); Hematocrit 39.3 % (35.5-45.6); Hemoglobin 13.3 gm/dl (11.8-15.2); Lymphocytes # (Auto) 3.4 K/mm3 (1.2-5.4); Lymphocytes % (Auto) 34.9 % (13.4-35.0); Mean Corpuscular HGB Conc 34 % (32-34); Mean Corpuscular Hemoglobin 26 pg (28-32); Mean Corpuscular Volume 78 fl (84-94); Monocytes # (Auto) 1.3 K/mm3 (0.0-0.8); Platelet Count 241 K/mm3 (140-440); Red Blood Count 5.04 M/mm3 (3.65-5.03); Red Cell Distribution Width 14.1 % (13.2-15.2)
[2017-08-07 10:23] LABS: Alanine Aminotransferase 121 units/L (7-56); Albumin 4.1 g/dL (3.9-5); BUN/Creatinine Ratio 25; Blood Urea Nitrogen 25 mg/dL (9-20); Calcium 9.2 mg/dL (8.4-10.2); Hemolysis Index 35
[2017-08-07] MEDS ORDERED: VITAMIN B-1 IM ONE (13:00)
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
[2017-08-07] MEDS ORDERED: ATIVAN IV ONE (13:15)
[2017-08-07] MEDS ORDERED: BENADRYL IM ONE (13:19)
[2017-08-07 13:36] LABS: Hepatitis A Antibody IgM Non-Reactive (NonReactive); Hepatitis B Core IgM Non-Reactive (NonReactive); Hepatitis B Surface Antigen Non-Reactive (Negative); Hepatitis C Virus Antibody Reactive (NonReactive)
[2017-08-07 14:51] LABS: INR 0.95 (0.87-1.13)
--- NOTE | 2017-08-07 20:47 | Consultation ---
History of Present Illness - Reason for Consult Consult date: 08/07/17 Reason for consult: Initial Psychiatric Evaluation Medications and Allergies Allergies Allergy/AdvReac Type Severity Reaction Status Date / Time Penicillins Allergy Unknown Verified 06/14/17 09:13 Sulfa (Sulfonamide Allergy Unknown Verified 08/07/17 05:40 Antibiotics) Home Medications Medication Instructions Recorded Confirmed Last Taken Type Nicotine [Habitrol] 14 mg TD DAILY #30 patch 06/16/17 Unknown Rx Pantoprazole [Protonix TAB] 40 mg PO DAILY #30 tablet 06/16/17 Unknown Rx Mental Status Exam - Vital signs Last Vital Signs Temp 98 F 08/07/17 08:23 Pulse 86 08/07/17 08:23 Resp 18 08/07/17 08:23 BP 101/57 08/07/17 08:23 Pulse Ox 100 08/07/17 08:23 Results Result Diagrams: 08/07/17 09:55 08/07/17 09:55 Abnormal lab results 08/07/17 08/07/17 08/07/17 Range/Units 09:55 09:55 09:55 RBC 5.04 H (3.65-5.03) M/mm3 MCV 78 L (84-94) fl MCH 26 L (28-32) pg Graves % (Auto) 13.0 H (0.0-7.3) % Graves # 1.3 H (0.0-0.8) K/mm3 BUN 25 H (9-20) mg/dL AST 584 H (5-40) units/L ALT 121 H (7-56) units/L Total Protein 8.3 H (6.3-8.2) g/dL Salicylates < 0.3 L (2.8-20.0) mg/dL Acetaminophen (10.0-30.0) ug/mL Hepatitis C Antibody (NonReactive) 08/07/17 08/07/17 Range/Units 09:55 09:59 RBC (3.65-5.03) M/mm3 MCV (84-94) fl MCH (28-32) pg Graves % (Auto) (0.0-7.3) % Graves # (0.0-0.8) K/mm3 BUN (9-20) mg/dL AST (5-40) units/L ALT (7-56) units/L Total Protein (6.3-8.2) g/dL Salicylates (2.8-20.0) mg/dL Acetaminophen < 5.0 L (10.0-30.0) ug/mL Hepatitis C Antibody Reactive A (NonReactive) All other labs normal. Assessment and Plan Assessment and plan: 1. Will restart home medication Zyprexa 10mg po QHS 2. Educated on metabolic side effects. Patient verbalizes understanding.
[2017-08-07 21:18] LABS: Bilirubin,Urine NEG (Negative); Blood,Urine SM (Negative); Color,Urine Yellow (Yellow); Mucus,Urine 2+ /HPF; Protein,Urine <15 mg/dL mg/dL (Negative); Urobilinogen,Urine < 2.0 mg/dL (<2.0)
[2017-08-07 21:37] LABS: Benzodiazepines Screen,Urine PRESUMPTIVE NEGATIVE; Cannabinoid Screen,Urine PRESUMPTIVE NEGATIVE; Cocaine Screen,Urine PRESUMPTIVE NEGATIVE; Methadone Screen,Urine PRESUMPTIVE NEGATIVE; Opiate Screen,Urine PRESUMPTIVE NEGATIVE
[2017-08-07 22:00] LABS: Amphetamine Screen,Urine PRESUMPTIVE POSITIVE
[2017-08-09 10:19] VITALS: BP 90/54
--- NOTE | 2017-08-09 13:53 | Progress Note ---
Subjective - Reason for Consult Consult date: 08/09/17 Reason for consult: Psychiatry Follow-up - Chief Complaint Chief complaint: 26-year-old male presenting to the ER for acute psychosis. Today the patient is calm, but disorganized during the assessment. He stated that he just got into an argument with his roommate, but his story wasn't logical. He denies recreational drug use, but he was positive for amphetamines. He denies taking a prescription stimulant. He could not fully explain why he got into the argument when asked. He denies SI/HI's and AVH's. Mental Status Exam - Vital signs Last Vital Signs Temp 98.3 F 08/09/17 10:18 Pulse 82 08/09/17 10:18 Resp 16 08/09/17 10:18 BP 90/54 08/09/17 10:18 Pulse Ox 96 08/09/17 10:18 - Exam Narrative exam: MSE: Appearance: calm Behavior: regular eye contact Speech: regular rate and tone Mood: "okay" Affect: normal Thought Process: disorganized Thought Content: denies SI/HI's and AVH's Motor Activity: lying in bed Cognition: A/O x 3 Insight: variable Judgment: variable Assessment and Plan Impression: Unspecified Psychosis. Substance Use DO (amphetamines). Today the patient is calm, but disorganized during the assessment. DDx: R/O Bipolar DO, R/O Substance Induced Psychosis Recommendation/Plan: Continue 2012 with placement to [facility] today.
== END 2017-08-09 14:42 ==
LOC: ED 05:18
DX: F23 Brief psychotic disorder (principal); K75.89 Other specified inflammatory liver diseases; R74.0 Nonspecific elevation of levels of transaminase and lactic acid dehydrogenase [LDH]; F31.9 Bipolar disorder, unspecified; F17.200 Nicotine dependence, unspecified, uncomplicated; Z88.2 Allergy status to sulfonamides; Z88.0 Allergy status to penicillin
CPT/HCPCS: 36415; 80053; 80074; 80307; 81001; 83735; 85025; 85610; 96372; 99285; G0480; J1630; J2060; J3411; 80320

== ENCOUNTER 2017-10-30 21:30 | Emergency (ER) | payer MEDICARE ==
[2017-10-30 22:20] LABS: Basophils % (Auto) 0.5 % (0.0-1.8); Eosinophils # (Auto) 0.3 K/mm3 (0.0-0.4); Eosinophils % (Auto) 3.5 % (0.0-4.3); Hematocrit 40.5 % (35.5-45.6); Hemoglobin 13.4 gm/dl (11.8-15.2); Lymphocytes # (Auto) 3.6 K/mm3 (1.2-5.4); Lymphocytes % (Auto) 36.4 % (13.4-35.0); Mean Corpuscular HGB Conc 33 % (32-34); Mean Corpuscular Hemoglobin 26 pg (28-32); Mean Corpuscular Volume 80 fl (84-94); Monocytes # (Auto) 1.1 K/mm3 (0.0-0.8); Monocytes % (Auto) 11.7 % (0.0-7.3); Platelet Count 376 K/mm3 (140-440); Red Blood Count 5.09 M/mm3 (3.65-5.03); Red Cell Distribution Width 14.5 % (13.2-15.2)
[2017-10-30 22:21] LABS: BUN/Creatinine Ratio 16; Blood Urea Nitrogen 14 mg/dL (9-20); Calcium 9.8 mg/dL (8.4-10.2); Hemolysis Index 10
[2017-10-31 00:04] LABS: Benzodiazepines Screen,Urine PRESUMPTIVE NEGATIVE; Cocaine Screen,Urine PRESUMPTIVE NEGATIVE; Methadone Screen,Urine PRESUMPTIVE NEGATIVE; Opiate Screen,Urine PRESUMPTIVE NEGATIVE
[2017-10-31 00:08] LABS: Bilirubin,Urine NEG (Negative); Blood,Urine NEG (Negative); Color,Urine Yellow (Yellow); Mucus,Urine 2+ /HPF; Urobilinogen,Urine < 2.0 mg/dL (<2.0)
[2017-10-31 00:34] LABS: Amphetamine Screen,Urine PRESUMPTIVE POSITIVE; Cannabinoid Screen,Urine PRESUMPTIVE POSITIVE
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
[2017-10-31] MEDS ORDERED: K-DUR PO ONE (00:46)
[2017-10-31 01:07] VITALS: BP 136/89
== END 2017-10-31 02:22 | disposition home or self-care (01) ==
LOC: ED 21:30
DX: F31.9 Bipolar disorder, unspecified (principal); F15.10 Other stimulant abuse, uncomplicated; F14.10 Cocaine abuse, uncomplicated; E87.6 Hypokalemia; F17.200 Nicotine dependence, unspecified, uncomplicated; Z88.0 Allergy status to penicillin; Z88.2 Allergy status to sulfonamides
CPT/HCPCS: 36415; 80048; 80185; 80307; 81001; 85025; 99284; G0480; 80320

== ENCOUNTER 2017-12-07 05:15 | Emergency (ER) | payer MEDICARE ==
[2017-12-07] MEDS ORDERED: GEODON IM ONE (06:53)
[2017-12-07] MEDS ORDERED: ATIVAN IM ONE (06:53)
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
[2017-12-07 07:03] LABS: Basophils # (Auto) 0.1 K/mm3 (0.0-0.1); Basophils % (Auto) 0.7 % (0.0-1.8); Eosinophils # (Auto) 0.6 K/mm3 (0.0-0.4); Eosinophils % (Auto) 4.8 % (0.0-4.3); Hematocrit 39.8 % (35.5-45.6); Lymphocytes # (Auto) 3.3 K/mm3 (1.2-5.4); Lymphocytes % (Auto) 27.9 % (13.4-35.0); Mean Corpuscular HGB Conc 33 % (32-34); Mean Corpuscular Volume 78 fl (84-94); Monocytes % (Auto) 8.7 % (0.0-7.3); Platelet Count 438 K/mm3 (140-440); Red Blood Count 5.08 M/mm3 (3.65-5.03); Red Cell Distribution Width 14.5 % (13.2-15.2)
[2017-12-07 07:13] LABS: Mean Corpuscular Hemoglobin 26 pg (28-32)
[2017-12-07 07:15] LABS: Creatine Kinase MB 3.8 ng/mL (0.0-4.0)
[2017-12-07 07:17] LABS: Alanine Aminotransferase 18 units/L (7-56); Albumin 4.5 g/dL (3.9-5)
[2017-12-07 07:21] LABS: Bilirubin,Direct < 0.2 mg/dL (0-0.2)
[2017-12-07 08:04] LABS: INR 0.91 (0.87-1.13)
[2017-12-07 08:05] LABS: Partial Thromboplastin Time 27.3 Sec. (24.2-36.6)
--- NOTE | 2017-12-07 08:20 | Cat Scan Report ---
CT HEAD WITHOUT CONTRAST: HISTORY: Altered mental status, AIDS. TECHNIQUE: Sequential 2.5mm CT images. COMPARISON: 06/14/17. FINDINGS: Cerebral Parenchyma: Within normal limits. Cerebellum: Within normal limits. Brainstem: Within normal limits. Ventricles: Normal. Sella: Normal. Extra-axial spaces: Normal. Basal Cisterns: Normal. Intracranial Hemorrhage: None. Midline Shift: None. Calvarium: Normal. Sinuses: Normal. Mastoid Air Cells: Normal. Visualized Orbits: Normal. IMPRESSION: Cranial CT scan within normal limits.
[2017-12-07] MEDS ORDERED: ALUM-MAG HYDROX-SIMETH 200-200-20MG/5ML PO PRN (08:22)
[2017-12-07] MEDS ORDERED: MILK OF MAGNESIA PO PRN (08:22)
[2017-12-07] MEDS ORDERED: TYLENOL PO PRN (08:22)
[2017-12-07] MEDS ORDERED: GEODON IM PRN (08:23)
[2017-12-07] MEDS ORDERED: WATER FOR INJ (PF) ONE (08:41)
[2017-12-07 08:50] LABS: BUN/Creatinine Ratio 11; Blood Urea Nitrogen 11 mg/dL (9-20); Calcium 9.5 mg/dL (8.4-10.2); Hemolysis Index 31
[2017-12-07] MEDS: GEODON PO SCH ×2 (13:43→22:04)
[2017-12-07 15:01] LABS: Bilirubin,Urine NEG (Negative); Blood,Urine NEG (Negative); Color,Urine Yellow (Yellow); Hyaline Casts,Urine 1 /LPF; Mucus,Urine 3+ /HPF; Protein,Urine <15 mg/dL mg/dL (Negative)
[2017-12-07 15:04] LABS: Benzodiazepines Screen,Urine PRESUMPTIVE NEGATIVE; Cocaine Screen,Urine PRESUMPTIVE NEGATIVE; Methadone Screen,Urine PRESUMPTIVE NEGATIVE; Opiate Screen,Urine PRESUMPTIVE NEGATIVE
[2017-12-07 15:18] LABS: Amphetamine Screen,Urine PRESUMPTIVE POSITIVE; Cannabinoid Screen,Urine PRESUMPTIVE POSITIVE
[2017-12-08] MEDS ORDERED: NON-FORMULARY (Etravirine [Intelence] 200 MG) PO SCH (10:30)
[2017-12-08] MEDS ORDERED: DOLUTEGRAVIR 50 MG PO SCH (10:30)
[2017-12-08] MEDS: GEODON PO SCH ×2 (12:03→21:54)
[2017-12-08] MEDS: PROTONIX PO SCH (12:30)
[2017-12-08] MEDS: PREZISTA PO SCH (12:30)
[2017-12-08] MEDS: ZOVIRAX PO SCH (12:30)
[2017-12-08] MEDS: NORVIR PO SCH (12:30)
--- NOTE | 2017-12-08 13:12 | Consultation ---
History of Present Illness - Reason for Consult Consult date: 12/08/17 Reason for consult: Initial Psychiatric Evaluation - History of Present Psychiatric Illness Patient is a 27-year-old man with a history of schizophrenia and AIDS. He is able to tell the ER physician that he is taking 4 as opposed to 5 antivirals. He was brought to this facility because he was "hallucinating" via ambulance. He is not providing much historical information. He is not voicing any specific complaints. He appears to be somewhat paranoid and responding to internal stimuli. Today patient presents guarded and evasive during the assessment. Patient states, " I'm here because I was doing drugs. The drugs make me hallucinate. I was seeing rats." He reports excessive energy and appropriate sleep/appetite. Patient is unable to stay awake during the assessment. Patient believes that his symptoms are getting better. The information below was obtained from a previous admission done by the current provider due to patient's limited historical information. Current Psychiatric Medications: Zyprexa 10mg po QHS. Past Psychiatric History: Bipolar( since childhood); 4 previous inpatient hospitalizations ( [facility] and [facility]); Outpatient psychiatrist Dr. Florence; No previous suicide attempt. Past Psychiatric Medication Trials: Patient denies any previous medications except Zyprexa. History Of Trauma/Abuse: Patient denies sexual, physical, and mental abuse. Drug/Alcohol Use Disorder: THC, amount/frequency- " 1 blunt" every 3 days, duration-varies, last use- 08-05-17, first use- Age 16; Methamphetamine, amount/ frequency- " 1 gram every 2 weeks," duration-varies, last use 08-05-17, first use Age 16. UDS positive for amphetamines. Social History: Highest level of education- some college; No job- disability; good support system- family; single; No children; Lives with roommate. Family History: Patient denies family psychiatric or substance abuse history. Medications and Allergies Allergies Allergy/AdvReac Type Severity Reaction Status Date / Time Penicillins Allergy Unknown Verified 06/14/17 09:13 Sulfa (Sulfonamide Allergy Unknown Verified 08/07/17 05:40 Antibiotics) Home Medications Medication Instructions Recorded Confirmed Last Taken Type Nicotine [Habitrol] 14 mg TD DAILY #30 patch 06/16/17 08/08/17 Unknown Rx Pantoprazole [Protonix TAB] 40 mg PO DAILY #30 tablet 06/16/17 08/08/17 Unknown Rx Acyclovir [Zovirax Tab] 800 mg PO DAILY 08/08/17 08/08/17 Unknown History Darunavir [Prezista] 600 mg PO DAILY 08/08/17 08/08/17 Unknown History Dolutegravir (Nf) [Tivicay (Nf)] 50 mg PO DAILY 08/08/17 08/08/17 Unknown History Etravirine [Intelence] 200 mg PO DAILY 08/08/17 08/08/17 Unknown History Ritonavir [Norvir] 100 mg PO DAILY 08/08/17 08/08/17 Unknown History Potassium Chloride [K-Dur] 20 meq PO BID #6 tab 10/31/17 Unknown Rx Clindamycin [Clindamycin CAP] 600 mg PO BID #20 capsule 11/25/17 Unknown Rx traMADol [Ultram 50 MG tab] 50 mg PO Q6HR PRN #20 tablet 11/25/17 Unknown Rx Active Meds: Active Medications Acetaminophen (Tylenol) 650 mg PO Q4HR PRN PRN Reason: Pain MILD(1-3)/Fever >100.5/ISLAS Acyclovir (Zovirax) 800 mg PO DAILY KIRBY Al Hydrox/Mg Hydrox/Simethicone (Alum-Mag Hydrox-Simeth [id number]/5ml) 30 ml PO Q4HR PRN PRN Reason: Indigestion Darunavir (Prezista) 600 mg PO DAILY KIRBY Etravirine (Intelence (Nf)) 200 mg PO DAILY KIRBY Magnesium Hydroxide (Milk Of Magnesia) 30 ml PO Q12HR PRN PRN Reason: Constipation Pantoprazole Sodium (Protonix) 40 mg PO DAILY KIRBY Ritonavir (Norvir) 100 mg PO DAILY KIRBY Ziprasidone (Geodon) 40 mg PO BID KIRBY Last Admin: 12/08/17 12:03 Dose: 40 mg Ziprasidone (Geodon) 10 mg IM Q12H PRN PRN Reason: Agitation Mental Status Exam - Vital signs Last Vital Signs Temp 97.7 F 12/08/17 09:59 Pulse 102 H 12/08/17 09:59 Resp 16 12/08/17 09:59 BP 102/65 12/08/17 09:59 Pulse Ox 99 09/19/18 09:59 - Exam Narrative exam: Mental Status Exam General Appearance: Causally Dressed-hospital gown Eye Contact: Intermittent Orientation: Alert and oriented x 3 ( person, place, and situation) Attitude/Behavior: Cooperative, guarded, evasive Sensorium: Distracted Psychomotor & Musculoskeletal Activity: Laying in bed Mood: " I'm better." Anxious and depressed Affect: Constricted Speech/Language: Delayed Thought Processes: Tangential Thought Content: Impoverished Perception: + VH's of rats Concentration/Attention: Impaired Suicidal Ideations/Plan: Patient denies Homicidal Ideations/Plan: Patient denies Insight: Variable Judgment: Variable Results Result Diagrams: 12/07/17 06:39 12/07/17 06:39 All other labs normal. Assessment and Plan Assessment and plan: Impression: PPHx of Schizophrenia. Patient is a 26 year old male who presents to the emergency with acute psychosis secondary to amphetamine use. Today patient presents guarded and evasive. He denies SI/HI's and delusions. He endorses VH's of rats. UDS positive for amphetamine and marijuana. DDx: r/o Bipolar Disorder with psychotic features r/o Schizoaffective Disorder , Bipolar Type r/o Drug Induced Psychosis Recommendations/Plan: 1. Continue 1013 and reassess in 24 hours. 2. Assist with placement to inpatient psychiatric services. 3. Will restart home medication Zyprexa 5mg po QHS 4. Patient educated on metabolic side effects. Patient verbalizes understanding. 5. Monitor mood, psychosis, sleep, appetite, compliance, and side effects.
[2017-12-08] MEDS: INTELENCE PO SCH (15:45)
[2017-12-08] MEDS: TIVICAY (NF) PO SCH (15:45)
[2017-12-09] MEDS: TIVICAY (NF) PO SCH (09:57)
[2017-12-09] MEDS: PROTONIX PO SCH (09:57)
[2017-12-09] MEDS: PREZISTA PO SCH (09:57)
[2017-12-09] MEDS: INTELENCE PO SCH (09:57)
[2017-12-09] MEDS: NORVIR PO SCH (09:57)
[2017-12-09] MEDS: ZOVIRAX PO SCH (09:59)
--- NOTE | 2017-12-09 13:03 | Progress Note ---
Subjective - Reason for Consult Consult date: 12/09/17 Reason for consult: Psychiatry Follow-up - Chief Complaint Chief complaint: "I am okay" 27-year-old man with a history of schizophrenia and AIDS. Per the recorid, he was brought to this facility because he was "hallucinating" via EMS. Today the patient is cooperative, but tangent during the assessment. He couldn't elaborate why he was brought to the ER. He stated that he felt good and should be "released." The patient was hyper verbal and tangent and had to be redirected several times to keep him on topic. He denies SI/HI's and AVH's. He denies any side effects of his medication. Mental Status Exam - Vital signs Last Vital Signs Temp 98.8 F 12/09/17 09:05 Pulse 85 12/09/17 09:05 Resp 18 12/09/17 09:05 BP 124/66 12/09/17 09:05 Pulse Ox 100 12/09/17 09:05 - Exam Narrative exam: MSE: Appearance: calm, cooperative Behavior: regular eye contact Speech: hyper verbal Mood: "okay" Affect: dysphoric Thought Process: tangential Thought Content: denies SI/HI's and AVH's Motor Activity: ambulatory Cognition: A/O x 3 Insight: variable Judgment: variable Assessment and Plan Impression: Hx of Schizophrenia. Substance Use DO (amphetamines). Cannabis Use DO. Today the patient is cooperative, but tangent during the assessment. DDx: R/O Bipolar DO with psychosis, R/O Schizoaffective DO, R/O Substance Induced Psychosis Recommendations/Plan: Reevaluate 1013 i n 24 hours to determine proper dispo. Continue Zyprexa 5 mg PO HS for mood/psychosis. Discussed possible metabolic side effects of Zyprexa with the patient.
[2017-12-09 20:07] VITALS: BP 114/64
== END 2017-12-09 20:07 ==
LOC: ED 05:15 → EEVIPCON 05:15 → ED 12-09 20:07
DX: F20.0 Paranoid schizophrenia (principal); F23 Brief psychotic disorder; F31.9 Bipolar disorder, unspecified; F17.200 Nicotine dependence, unspecified, uncomplicated; Z88.0 Allergy status to penicillin; Z88.2 Allergy status to sulfonamides
CPT/HCPCS: 36415; 70450; 80048; 80074; 80307; 81001; 82140; 82550; 82553; 83735; 83880; 85025; 85610; 85730; 96372; 99285; G0480; J2060; J3486; 80320